=== PATIENT | female | born 1960 | race Caucasian/White ===

== ENCOUNTER 2018-09-19 21:28 | Inpatient (IN) | payer MEDICARE ==
[2018-09-19] MEDS ORDERED: Nitroglycerin 2% Ointment 1 INCH/1 GM Packet ONE (22:04)
[2018-09-20 02:02] LABS: Troponin I Less than 0.010 ng/mL (< 0.028)
[2018-09-20] MEDS ORDERED: Ondansetron PF 4 MG/2 ML Vial IVP PRN (02:07)
[2018-09-20] MEDS ORDERED: Ondansetron ODT 4 MG TAB SL PRN (02:07)
[2018-09-20] MEDS ORDERED: Acetaminophen 325 MG TAB PO PRN (02:07)
[2018-09-20] MEDS ORDERED: Nitroglycerin 2% Ointment 1 INCH/1 GM Packet TOP PRN (02:09)
[2018-09-20 02:16] VITALS: BMI 38.2
[2018-09-20 05:20] LABS: Troponin I Less than 0.010 ng/mL (< 0.028)
[2018-09-20 14:56] LABS: Actual Bicarbonate (HCO3a) 28.3 mEq/L (22-28); Base Excess (BEa) 0.1 mEq/L (-2.0 to +3.0); Calcium, Ionized 1.17 mmol/L (1.12-1.30); Carboxyhemoglobin (COHb) 2.6 gm% (0.0-3.0); Hemoglobin (Hb) 15.1 g/dL (12.0-16.0); Potassium - ABG Lab 4.87 mmol/L (3.70-5.30); pH, Arterial 7.28 (7.35-7.45)
[2018-09-20 14:57] LABS: CO2 Tension 61.2 mmHg (35.0-45.0); Puncture Site LRA
--- NOTE | 2018-09-20 15:40 | CT ---
FCT Brain WO Con History:Altered mental status Comparison: 09/11/2016 study Findings: The ventricular and cisternal system is within normal limits. There are no signs of intrace rebral hemorrhage or extra-axial fluid collections. The mastoid air cells and visualized sinuses are clear. Impression: No acute intracranial abnormalities.
--- NOTE | 2018-09-20 15:45 | HP ---
PRIMARY CARE PROVIDER: Dr. Jhoan Florentino. CHIEF COMPLAINT: Chest pain. HISTORY OF PRESENT ILLNESS: Ms. Young is a 58-year-old lady, who was seen at [facility] on 09/20/2018 following transfer from [facility] in [place]. The patient is currently lethargic, unable to provide any significant history. Collateral history was obtained from review of medical records. She presented to the emergency room at [facility] in [place] yesterday evening for chest pain. The chest pain started while she was watching television. It was retrosternal, pressure like, of moderate intensity and accompanied with nausea, but no diaphoresis. She took nitroglycerin, two doses and felt better. Her chest pain improved. She was subsequently transferred to the emergency room at [facility] and then admitted to the hospital. REVIEW OF SYSTEMS: Could not be completed. PAST MEDICAL HISTORY: History of cytosis, depression, hypertension, hypothyroidism, and pulmonary embolism. PAST SURGICAL HISTORY: Breast surgery, cardiac catheterization in 2013 showing normal coronaries, section, cholecystectomy, and D and C of uterus. PSYCHIATRIC HISTORY: Bipolar disorder and schizoaffective disorder. SOCIAL HISTORY: The patient smokes half a pack of cigarettes a day. She does not use alcohol or recreational drugs. FAMILY HISTORY: Significant for hypertension in mother and cancer in father. ALLERGIES: STADOL. CURRENT MEDICATIONS: 1. Acyclovir 400 mg daily. 2. Atorvastatin 10 mg 3 times a day. 3. Cyclobenzaprine 10 mg at bedtime. 4. Dicyclomine 20 mg three times a day. 5. Gabapentin 300 mg four times a day. 6. Irbesartan 300 mg daily. 7. Hyoscyamine p.r.n. 8. Jantoven 5 mg daily. 9. Levothyroxine 25 mcg daily. 10. Zofran p.r.n. 11. Zantac 150 mg every 8 hours as needed. 12. Trazodone 100 mg daily. 13. Geodon 80 mg daily. PHYSICAL EXAMINATION: GENERAL: On examination, Ms. Young is lethargic, arousable with painful stimuli, but falling asleep right away. She is obese, with a BMI of 38.3. VITAL SIGNS: Blood pressure is 115/56, pulse 83, respiratory rate 20, and oxygen saturation 94% on 3.5 L of oxygen by nasal cannula. HEENT: Eyes; no scleral icterus, no conjunctival pallor. ENT, moist mucosal membranes. NECK: No cervical lymphadenopathy. Neck is supple. Nontender. RESPIRATORY: Accessory muscles of breathing are not active. Chest wall movements are symmetric bilaterally. LUNGS: Clear to auscultation without wheeze, rhonchi, or crepitations. CARDIOVASCULAR: S1 and S2 are heard, regular. Peripheral pulses palpable. No carotid bruit. No pericardial rub. ABDOMEN: Soft, nontender, bowel sounds are heard. NEUROLOGIC: Full neurologic examination was not possible secondary to the patient's noncooperation. Pupils are 6 mm bilaterally, reactive to light. There is no facial droop. The patient is moving all 4 extremities. Deep tendon reflexes are 2+. Plantar reflexes downgoing bilaterally. SKIN: No rashes or subcutaneous nodules. MUSCULOSKELETAL: The patient is moving all 4 extremities. LYMPHATIC: No cervical lymphadenopathy. PSYCHIATRIC: Unable to assess mood, affect, or orientation to person, place, or time. DIAGNOSTIC STUDIES: Ms. Young's labs and investigations were reviewed. I reviewed her electrocardiogram, which shows normal sinus rhythm, T-wave flattening/inversion in the inferior leads and lateral leads. I also reviewed her chest x-ray, which does not show any pulmonary infiltrates. Comprehensive metabolic profile is unremarkable. Lactic acid level is normal at 1.8. CBC is unremarkable. Troponin I is negative x3 at this facility. ASSESSMENT AND PLAN: Ms. Young is a 58-year-old lady, who was seen at [facility] on 09/20/2018 following transfer from [facility] at [place]. Her problem list includes: 1. Chest pain: She presented to the emergency room at [place] complaining of chest pain. She had a normal cath in 2013. She will be admitted to the hospital for further management including telemetry monitoring. We will also request a stress test. 2. Altered mental status: Etiology is unclear. It is also unclear what her baseline is. We will check arterial blood gases. We will also check CT scan of the brain, since she is on anticoagulants. We will check urine drug screen. 3. Hypertension: We will monitor vital signs and titrate antihypertensives as needed. 4. Hypothyroidism: Continue Synthroid. 5. History of pulmonary embolism: Continue warfarin. Many thanks for allowing me to participate in your patient's care. Please feel free to contact me with any questions or concerns. LEVEL OF RISK: High. LEVEL OF COMPLEXITY: High. Job ID: [id number]
--- NOTE | 2018-09-20 15:45 | PDOC.EVN ---
Event Note - Event Note Event Note: 3:20-3:37 PM on September 20, 2018: Discussed with patient's son Carl over the telephone. Updated re: pt's current clinical status including lethargy, hypercapnic and hypoxic respiratory failure. Answered his questions. Discussed goals of care and code status. Patient is full code.
[2018-09-20] MEDS: Acyclovir 400 mg Tablet PO SCH ×2 (17:35→21:33)
[2018-09-20 18:24] LABS: #Basophils 0.1 thou/uL (0.0-0.2); #Eosinphils 0.1 thou/uL (0.0-0.7); #Lymphocytes 3.1 thou/uL (1.20-3.40); #Monocytes 1.2 thou/uL (0.11-0.59); #Neutrophils 6.8 thou/uL (1.40-6.50); %Basophils 0.5 % (0.0-1.0); %Eosinophils 1.2 % (0.0-10.0); %Monocytes 10.7 % (0.0-10.0); %Neutrophils 60.6 % (42.0-75.0); Hemoglobin 15.1 g/dL (12.0-16.0); Mean Corpuscular HGB CONC 31.8 g/dL (32.0-36.0); Mean Corpuscular Hemoglobin 30.8 pg (27.0-31.0); Mean Corpuscular Volume 96.8 fL (78.0-98.0); Mean Platelet Volume 7.2 fL (7.4-10.4); Platelet Count 275 thou/uL (130-400); RBC Distribution Width 12.9 % (11.5-14.5); Red Blood Cell (RBC) Count 4.91 mill/uL (4.20-5.40); White Blood Cell (WBC) Count 11.3 thou/uL (4.8-10.8)
[2018-09-20 18:44] LABS: Anion Gap 13 mmol/L (10-20); BUN (Urea Nitrogen) 15 mg/dL (9.8-20.1); Calc. Creatinine Clearance 126 mL/min (70-130); Calcium 8.7 mg/dL (7.8-10.44); Carbon Dioxide 25 mmol/L (22-29); Chloride 103 mmol/L (98-107); Estimated GFR-MDRD 70; Glucose 83 mg/dL (70-105); Potassium 4.6 mmol/L (3.5-5.1); Sodium 136 mmol/L (136-145)
[2018-09-20] MEDS: Warfarin Sodium 5 MG TAB PO SCH (19:07)
[2018-09-20 21:07] LABS: Bilirubin Negative (Negative); Blood, Urine Negative (Negative); Clarity CLEAR (Clear); Glucose, Urine (Dipstick) Negative (Negative); Leukocyte Negative (Negative); Nitrite Negative (Negative); Protein, Urine (Dipstick) Negative (Neg-Trace); Specific Gravity, Urine 1.013 (1.002-1.036); Urobilinogen 0.2 mg/dL (0.2-1.0); pH, Urine 6.5 (5.0-9.0)
[2018-09-20 21:09] LABS: Bacteria/HPF None Seen HPF (None Seen); Hyaline Casts/LPF 0-3 HYALINE CAST LPF (0-3 Hyaline); Pathc Cast-AUWi Flag 0.67 (0-2.49); Squamous Epithelial 0-3 HPF (0-3); WBC/HPF 0-3 HPF (0-3)
[2018-09-20 21:10] LABS: Urine Culture Reflex No No
[2018-09-20 21:14] LABS: Amphetamine Not Detected (NotDetected); Barbiturates Screen Not Detected (NotDetected); Benzodiazepine Screen Detected (NotDetected); Cocaine Metabolite Screen Not Detected (NotDetected); Medtox Control Line Valid? VALID (VALID); Medtox Reader # READER 4; Methadone Not Detected (NotDetected); Methamphetamine Not Detected (NotDetected); Opiate Screen Not Detected (NotDetected); Oxycodone Screen Not Detected (NotDetected); Phencyclidine (PCP) Not Detected (NotDetected); THC/Cannabinoid Screen Not Detected (NotDetected); Tricyclic Screen Not Detected (NotDetected)
[2018-09-20] MEDS: Atorvastatin Calcium 10 MG TAB PO SCH (21:33)
[2018-09-21] MEDS: Acyclovir 400 mg Tablet PO SCH ×6 (00:48→23:02)
[2018-09-21] MEDS: Levothyroxine Sodium 25 MCG TAB PO SCH (06:36)
[2018-09-21 06:40] LABS: #Basophils 0.1 thou/uL (0.0-0.2); #Eosinphils 0.1 thou/uL (0.0-0.7); #Lymphocytes 2.8 thou/uL (1.20-3.40); #Monocytes 0.7 thou/uL (0.11-0.59); #Neutrophils 3.6 thou/uL (1.40-6.50); %Basophils 0.8 % (0.0-1.0); %Eosinophils 1.6 % (0.0-10.0); %Lymphocytes 38.7 % (21.0-51.0); %Neutrophils 49.9 % (42.0-75.0); Mean Corpuscular HGB CONC 31.9 g/dL (32.0-36.0); Mean Corpuscular Hemoglobin 30.9 pg (27.0-31.0); Mean Corpuscular Volume 96.7 fL (78.0-98.0); Mean Platelet Volume 7.5 fL (7.4-10.4); Platelet Count 272 thou/uL (130-400); RBC Distribution Width 12.9 % (11.5-14.5); Red Blood Cell (RBC) Count 4.54 mill/uL (4.20-5.40); White Blood Cell (WBC) Count 7.3 thou/uL (4.8-10.8)
[2018-09-21 06:46] LABS: INR-International Normal Ratio 1.5; Prothrombin Time 17.9 SEC (12.0-14.7)
[2018-09-21 07:01] LABS: Anion Gap 13 mmol/L (10-20); BUN (Urea Nitrogen) 21 mg/dL (9.8-20.1); Calc. Creatinine Clearance 115 mL/min (70-130); Calcium 8.5 mg/dL (7.8-10.44); Carbon Dioxide 24 mmol/L (22-29); Chloride 101 mmol/L (98-107); Estimated GFR-MDRD 64; Glucose 142 mg/dL (70-105); Potassium 4.2 mmol/L (3.5-5.1); Sodium 134 mmol/L (136-145)
--- NOTE | 2018-09-21 07:59 | CON ---
DATE OF CONSULTATION: 09/20/2018 HISTORY OF PRESENT ILLNESS: Ms. Young is a 58-year-old female transferred to the ICU for somnolence. She had a CT prior to transfer. She actually awakened easily when she arrived in the ICU. She had not received any sedative drugs. She is noted to have apneic spells when she falls asleep. She was admitted for chest pain, was in the middle of that workup. PAST MEDICAL HISTORY: Remarkable for, 1. Pulmonary emboli according to her twice in the past, for which she takes Coumadin. 2. History of an ER visit here in August of 2016, for evaluation of her fall, apparently she fell off a ladder, had an extensive workup and was not admitted to the hospital. 3. History of obesity. 4. History of a cardiac catheterization in 2001 complicated apparently by cardiac arrest during the procedure. 5. History of diabetes. 6. History of histiocytosis at age 9 months. 7. History of lumbar compression fractures. 8. History of cholecystectomy. 9. History of 2013 admission for chest pain. 10. History of reflux disease. 11. Some type of psychiatric disorder according to old notes, treated with Geodon. a. I did find a note from Dr. Waddell, but I could not pull it out. It was a 2001 psychiatric hospitalization note. 12. History of lipid disorder. 13. History of gastric erosions on endoscopy in the past. 14. History of tobacco use back in 2012. She was smoking 2 to 3 cigarettes a day. 15. History of VFib during cardiac catheterization, requiring several cardioversions. 16. There was a questionable allergy to iodine in the past and stadol. FAMILY HISTORY: Negative for lung disease. SOCIAL HISTORY: Still smoking a half pack a day. She is not a drinker. MEDICATIONS: Have been reviewed. REVIEW OF SYSTEMS: Ten point review of systems completed, otherwise negative. PHYSICAL EXAMINATION: GENERAL: She remembers me from taking care of her [id number] many years ago when I walked in the room. She responded quickly. Was pleasant, cooperative. VITAL SIGNS: Heart rate was in the 70s, blood pressure is 102/73, respiratory rate is 18, oximetry is 93. HEENT: Pupils are equal. Sclerae are anicteric. Conjunctiva was injected. Extraocular movements are intact. NECK: Supple. LUNGS: Clear. HEART: Regular rhythm. S1, S2 are normal. ABDOMEN: Soft and nontender. EXTREMITIES: Without clubbing, cyanosis, or edema. IMPRESSION: Hypersomnolence, most likely secondary to untreated sleep apnea/ obesity hypoventilation syndrome. Blood gas shows a pH 7.28, CO2 61, PO2 of 72 with no sedatives on board. I have recommended BiPAP whenever she sleeps, as I suspect this will gradually improve. She said she is willing to do a sleep study after discharge. With regard to her chest discomfort, I reviewed her history and discussed this with her and it does not sound like typical cardiac chest discomfort. I am sure Dr. Cleveland would like to know if she is in the hospital, but would not be interested in resting off to a heart catheterization after her cardiac arrest with catheterization in the past. Dr. Cleveland should have those cath records available in her office chart, I would think. I will be happy to follow her while she is in the hospital. This is a 70-minute consult, with greater than 50% of the time spent coordinating care. Job ID: [id number] [facility]
[2018-09-21] MEDS: FLUoxetine HCl 20 MG CAP PO SCH (09:03)
[2018-09-21] MEDS: Famotidine 20 MG TAB PO SCH (09:03)
[2018-09-21] MEDS ORDERED: Nitroglycerin 0.4 MG TAB (25 Tab Bottle) SL PRN (11:07)
--- NOTE | 2018-09-21 11:35 | PRG ---
DATE OF SERVICE: 09/21/2018 SUBJECTIVE: Shae Young is much more alert today. She said she tolerated the mask much better than she expected that she would. Her blood pressure is running low this morning 97 to 102, so her blood pressure medications have been held. I will discontinue her ARB and cut her beta-briseyda dose way down. OBJECTIVE: VITAL SIGNS: Blood pressure now is 102/60, heart rate 69, respiratory rate in the teens. LUNGS: Clear. HEART: Regular rhythm. ABDOMEN: Soft and nontender. EXTREMITIES: Without edema. LABORATORY DATA: White count , hemoglobin 14.0, platelets 272. Sodium 134, potassium 4.2, chloride 101, bicarb 24, BUN 21, creatinine 0.9, glucose 142. IMPRESSION: 1. Obesity hypoventilation syndrome. 2. Hypertension. 3. Schizoaffective disorder, clinically stable. 4. Hypertension, which should improve with treatment of her sleep apnea. 5. History of recurrent thromboembolic events by her history, on warfarin, slightly subtherapeutic. 6. Obesity. 7. Diabetes. 8. Status post admission at this time for chest pain with no recurrence of her chest discomfort so far. 9. Past history of tobacco use. 10. History of VFib during cardiac catheterization. 11. ? Allergy to iodine and stadol. 12. Ongoing tobacco use. PLAN: 1. Continue supportive care. Continue BiPAP when asleep. 2. Sleep study when she is stable out of the hospital. 3. Complete her cardiac workup, consider notifying her straightener, Dr. Cleveland for admission. Job ID: [id number]
--- NOTE | 2018-09-21 14:02 | PDOC.PN ---
- Subjective Encounter Start Date: 09/21/18 Encounter Start Time: 09:20 Pt seen for followup re; acute metabolic encephalopathy. Says she feels well now. Had chest pain prior to coming to ER, not now. - Objective MAR Reviewed: Yes Vital Signs & Weight: Vital Signs (12 hours) Temp Pulse Resp Pulse Ox 09/21/18 11:42 98.5 F 09/21/18 08:20 95 09/21/18 08:00 98.9 F 09/21/18 07:52 94 L 09/21/18 04:00 99.1 F 09/21/18 02:51 70 19 92 L Weight Weight 242 lb 1.081 oz Most Recent Monitor Data Heart Rate from ECG 70 NIBP 109/71 NIBP BP-Mean 83 Respiration from ECG 16 SpO2 95 I&O: 09/20/18 09/21/18 09/22/18 06:59 06:59 06:59 Intake Total 480 840 Output Total 600 1325 Balance -120 -485 Result Diagrams: 09/21/18 05:40 09/21/18 05:40 EKG Reviewed by me: Yes (Tele: NSR) Phys Exam - Physical Examination Obese HEENT: moist MMs Neck: supple Respiratory: clear to auscultation bilateral Cardiovascular: RRR Gastrointestinal: soft Neurological: moves all 4 limbs Psychiatric: normal affect Dx/Plan (1) Acute metabolic encephalopathy Code(s): G93.41 - METABOLIC ENCEPHALOPATHY Status: Acute Comment: Likely secondary to hypercapnia, improving (2) Acute on chronic respiratory failure with hypoxia and hypercapnia Code(s): J96.21 - ACUTE AND CHRONIC RESPIRATORY FAILURE WITH HYPOXIA; J96.22 - ACUTE AND CHRONIC RESPIRATORY FAILURE WITH HYPERCAPNIA Status: Acute Comment : Improved with BiPAP (3) Chest pain Code(s): R07.9 - CHEST PAIN, UNSPECIFIED Status: Acute Comment: Pt had resting portion of stress test yesterday. Will complete stress test tomorrow. Discussed with cardiology service. (4) HTN (hypertension) Code(s): I10 - ESSENTIAL (PRIMARY) HYPERTENSION Status: Acute Comment: controlled (5) History of pulmonary embolism Code(s): Z86.711 - PERSONAL HISTORY OF PULMONARY EMBOLISM Status: Chronic Comment: continue warfarin - Plan * . Review of Systems - Review of Systems Respiratory: negative: Cough, Shortness of Breath, SOB with Excertion, Pleuritic Pain, Wheezing Cardiovascular: negative: chest pain, palpitations, orthopnea, paroxysmal nocturnal dyspnea, edema, light headedness - Medications/Allergies Allergies/Adverse Reactions: Allergies Allergy/AdvReac Type Severity Reaction Status Date / Time butorphanol [From Stadol] Allergy "andray" Verified 09/20/18 02:26 Medications: Current Medications Acyclovir (Zovirax) 400 mg PO 5XD [facility] Last Admin: 09/21/18 13:56 Dose: 400 mg Albuterol/Ipratropium (Duoneb) 3 ml NEB [id number] PRN PRN Reason: SOB &/or Wheezing Albuterol/Ipratropium (Duoneb) 3 ml NEB [id number] [facility] Atorvastatin Calcium (Lipitor) 10 mg PO HS [facility] Last Admin: 09/20/18 21:33 Dose: 10 mg Famotidine (Pepcid) 40 mg PO DAILY [facility] Last Admin: 09/21/18 09:03 Dose: 40 mg Fluoxetine HCl (Prozac) 20 mg PO DAILY [facility] Last Admin: 09/21/18 09:03 Dose: 20 mg Fluticasone Propionate (Flonase Nasal [place]) 1 gm NASAL DAILY [facility] Levothyroxine Sodium (Synthroid) 25 mcg PO 0600 [facility] Last Admin: 09/21/18 06:36 Dose: 25 mcg Metoprolol Succinate (Toprol Xl) 25 mg PO DAILY [facility] Nitroglycerin (Nitrostat) 0.4 mg SL Q5MIN PRN PRN Reason: Chest Pain Warfarin Sodium (Coumadin) 5 mg PO SuMoTuFrSa@1700 [facility] Last Admin: 09/20/18 19:07 Dose: 5 mg Warfarin Sodium (Coumadin) 10 mg PO WeTh@1700 [facility] Ziprasidone (Geodon) 80 mg PO BID [facility]
--- NOTE | 2018-09-21 14:46 | CON ---
DATE OF CONSULTATION: 09/21/2018 REASON FOR CONSULTATION: Chest pain. PRIMARY CARE PROVIDER: Dr. Chaves. PRIMARY METAL STUD FRAMER: Dr. Sofi Cleveland. HISTORY OF PRESENT ILLNESS: This lady is a 58-year-old woman with a past medical history of sleep apnea, who states she developed one episode of chest pain prior to coming to the emergency room. She states the pain was felt to be severe, sharp, worse with deep breath. She says this was lasting less than 1 minute. She was subsequently admitted and placed on oxygen. She then had a resting stress study performed yesterday. She developed somnolence. She was transferred to the ICU and placed on BiPAP. She was felt to be hypercapnic. During my visit, she is doing well. She had another episode of chest pain, that she said lasted less than 1 minute and occurred at rest. The patient did undergo coronary angiography in January 2014. She had a normal LAD, left main artery, and circumflex artery. PAST MEDICAL HISTORY: 1. Obesity. 2. PE. 3. Diabetes mellitus. 4. Histiocytosis. 5. Compression fracture. 6. Cholecystectomy. 7. Lipid disorder. 8. Previous tobacco abuse. FAMILY HISTORY: Negative for CAD. SOCIAL HISTORY: Positive tobacco use. REVIEW OF SYSTEMS: A 10-point review of systems is reviewed and as above, otherwise negative. HOME MEDICATIONS: 1. Irbesartan. 2. Geodon. 3. Atorvastatin. 4. Ranitidine. 5. Toprol-XL. 6. Trazodone. 7. Coumadin. 8. Levothyroxine. 9. Acyclovir. 10. Xanax. 11. Prozac. PHYSICAL EXAMINATION: GENERAL: Patient is a pleasant female, who is in no acute distress. The patient appears their stated age. She is morbidly obese, weighing 242 pounds with a BMI of 37. VITAL SIGNS: Blood pressure 120/86, pulse 65, temperature afebrile. NEUROLOGIC: The patient is alert and oriented x3 with no focal neurologic deficits. HEENT: Sclerae without icterus. Mouth has moist mucous membranes with normal pallor. NECK: No JVD. Carotid upstroke brisk. No bruits bilaterally. LUNGS: Clear to auscultation with unlabored respirations. BACK: No scoliosis or kyphosis. CARDIAC: Regular rate and rhythm with normal S1 and S2. No S3 or S4 noted. No significant rubs, murmurs, thrills, or gallops noted throughout the precordium. PMI is not displaced. There is no parasternal heave. ABDOMEN: Soft, nontender, nondistended. No peritoneal signs present. No hepatosplenomegaly. No abnormal striae. EXTREMITIES: 2+ femoral and 2+ dorsalis pedis pulses. No cyanosis, clubbing, or edema. SKIN: No gross abnormalities. PERTINENT LABORATORY DATA: Hemoglobin 14, hematocrit 43, platelet count of 272. IMPRESSION: 1. Chest pain. 2. Obesity. 3. Hypercapnic state. RECOMMENDATION: Ms. Young's symptoms are very atypical for angina. We will have the second part of the stress study performed. She did have angiography performed in 2013 and was felt to be within normal limits. At this point, we will continue conservative therapy. Job ID: [id number]
[2018-09-21] MEDS: Warfarin Sodium 5 MG TAB PO SCH (17:24)
[2018-09-21] MEDS: Atorvastatin Calcium 10 MG TAB PO SCH (20:25)
[2018-09-22] MEDS: FLUoxetine HCl 20 MG CAP PO SCH (05:45)
[2018-09-22] MEDS: Levothyroxine Sodium 25 MCG TAB PO SCH (05:45)
[2018-09-22] MEDS: Acyclovir 400 mg Tablet PO SCH ×3 (05:45→16:18)
[2018-09-22] MEDS: Famotidine 20 MG TAB PO SCH (05:45)
[2018-09-22 06:44] LABS: #Basophils 0.1 thou/uL (0.0-0.2); #Eosinphils 0.3 thou/uL (0.0-0.7); #Lymphocytes 3.4 thou/uL (1.20-3.40); #Monocytes 1.1 thou/uL (0.11-0.59); #Neutrophils 3.9 thou/uL (1.40-6.50); %Basophils 0.8 % (0.0-1.0); %Eosinophils 3.1 % (0.0-10.0); %Lymphocytes 38.4 % (21.0-51.0); %Monocytes 12.8 % (0.0-10.0); %Neutrophils 44.9 % (42.0-75.0); Hemoglobin 14.3 g/dL (12.0-16.0); Mean Corpuscular Hemoglobin 30.7 pg (27.0-31.0); Mean Platelet Volume 7.3 fL (7.4-10.4); Platelet Count 276 thou/uL (130-400); Red Blood Cell (RBC) Count 4.67 mill/uL (4.20-5.40); White Blood Cell (WBC) Count 8.8 thou/uL (4.8-10.8)
[2018-09-22 06:49] LABS: INR-International Normal Ratio 1.4; Prothrombin Time 16.9 SEC (12.0-14.7)
[2018-09-22 07:07] LABS: Anion Gap 12 mmol/L (10-20); BUN (Urea Nitrogen) 16 mg/dL (9.8-20.1); Calc. Creatinine Clearance 129 mL/min (70-130); Calcium 8.8 mg/dL (7.8-10.44); Carbon Dioxide 26 mmol/L (22-29); Chloride 107 mmol/L (98-107); Estimated GFR-MDRD 70; Glucose 85 mg/dL (70-105); Potassium 4.1 mmol/L (3.5-5.1); Sodium 141 mmol/L (136-145)
[2018-09-22] MEDS ORDERED: Fluticasone Propionate Nasal Spray 16 gm Bottle NASAL SCH (09:00)
[2018-09-22] MEDS ORDERED: ADENOSINE 60 MG/20 ML VIAL ONE (09:15)
--- NOTE | 2018-09-22 09:55 | PDOC.CTH ---
Cardiology Progress Note - Subjective Patient without complaints. Denies CP - Objective Vital Signs Temp Pulse Resp BP Pulse Ox 09/22/18 07:20 98.0 F 75 16 138/69 95 09/22/18 04:05 97.9 F 73 16 127/68 93 L 09/21/18 22:16 76 16 92 L Weight 250 lb 09/21/18 09/22/18 09/23/18 06:59 06:59 06:59 Intake Total 480 1310 Output Total 600 3225 Balance -120 -1915 - Physical Examination General/Neuro: alert & oriented x3 Lungs: CTA Heart: RRR Abdomen: NT/ND Extremities: other: (trace B AKIRA) - Telemetry Telemetry Rhythm: SR - Labs Result Diagrams: 09/22/18 06:27 09/22/18 06:27 Troponin/CKMB Troponin I Less than 0.010 ng/mL (< 0.028) 09/20/18 04:38 - Assessment/Plan 1. Chest pain 2. Obesity 3. BARBARA 4. DM-II History of normal coronaries per cath 2013. Will complete 2nd portion of stress today. If no reversible ischemia, can be discharged afterwards from my standpoint.
--- NOTE | 2018-09-22 13:43 | NM ---
[facility] Cardiac myocardial perfusion SPECT Ejection fraction study Wall motion cine: DATE: 09/22/2018 History: 58-year-old hypertensive diabetic smoker presents with acute chest pain. TECHNIQUE: Number of days:1 Rest study: Not performed. This is a stress-only study. Pharmacologic stress: Adenosine dose:63.3 mg Stress study: Technetium 99m-sestamibi (Cardiolite) dose:30.0 mCi FINDINGS: Cardiac (myocardial perfusion) SPECT There are no myocardial perfusion defects. Ejection fraction study Left ventricular EF is 84% Wall motion cine Normal IMPRESSION: Negative.
--- NOTE | 2018-09-22 14:01 | PDOC.PN ---
- Subjective Encounter Start Date: 09/22/18 Encounter Start Time: 07:40 Pt seen for followup re: chest pain. Awaiting stress test. - Objective MAR Reviewed: Yes Vital Signs & Weight: Vital Signs (12 hours) Temp Pulse Resp BP Pulse Ox 09/22/18 13:34 98.2 F 84 18 133/77 94 L 09/22/18 07:20 98.0 F 75 16 138/69 95 09/22/18 04:05 97.9 F 73 16 127/68 93 L Weight Weight 250 lb Most Recent Monitor Data Heart Rate from ECG 86 NIBP 108/69 NIBP BP-Mean 82 Respiration from ECG 16 SpO2 94 I&O: 09/21/18 09/22/18 09/23/18 06:59 06:59 06:59 Intake Total 480 1310 Output Total 600 3225 Balance -120 -1915 Result Diagrams: 09/22/18 06:27 09/22/18 06:27 Phys Exam - Physical Examination Obese HEENT: moist MMs Neck: supple Respiratory: clear to auscultation bilateral Cardiovascular: RRR Gastrointestinal: soft Neurological: moves all 4 limbs Psychiatric: normal affect Dx/Plan (1) Chest pain Code(s): R07.9 - CHEST PAIN, UNSPECIFIED Status: Acute Comment: Pt cannot have stress etst until tomorrow. Likely home if test is negative. (2) Acute metabolic encephalopathy Code(s): G93.41 - METABOLIC ENCEPHALOPATHY Status: Acute Comment: Improving (3) Acute on chronic respiratory failure with hypoxia and hypercapnia Code(s): J96.21 - ACUTE AND CHRONIC RESPIRATORY FAILURE WITH HYPOXIA; J96.22 - ACUTE AND CHRONIC RESPIRATORY FAILURE WITH HYPERCAPNIA Status: Acute Comment : Improved (4) HTN (hypertension) Code(s): I10 - ESSENTIAL (PRIMARY) HYPERTENSION Status: Chronic Comment: controlled (5) History of pulmonary embolism Code(s): Z86.711 - PERSONAL HISTORY OF PULMONARY EMBOLISM Status: Chronic Comment: continue warfarin - Plan * . Review of Systems - Review of Systems Cardiovascular: negative: chest pain, palpitations, orthopnea, paroxysmal nocturnal dyspnea, edema, light headedness Gastrointestinal: negative: Nausea, Vomiting, Abdominal Pain, Diarrhea, Constipation, Melena, Hematochezia - Medications/Allergies Allergies/Adverse Reactions: Allergies Allergy/AdvReac Type Severity Reaction Status Date / Time butorphanol [From Stadol] Allergy "crazy" Verified 09/20/18 02:26 Medications: Current Medications Acyclovir (Zovirax) 400 mg PO 5XD [facility] Last Admin: 09/22/18 13:36 Dose: 400 mg Albuterol/Ipratropium (Duoneb) 3 ml NEB [id number] PRN PRN Reason: SOB &/or Wheezing Albuterol/Ipratropium (Duoneb) 3 ml NEB [id number] [facility] Last Admin: 09/22/18 11:20 Dose: Not Given Atorvastatin Calcium (Lipitor) 10 mg PO HS [facility] Last Admin: 09/21/18 20:25 Dose: 10 mg Famotidine (Pepcid) 40 mg PO DAILY [facility] Last Admin: 09/22/18 05:45 Dose: 40 mg Fluoxetine HCl (Prozac) 20 mg PO DAILY [facility] Last Admin: 09/22/18 05:45 Dose: 20 mg Fluticasone Propionate (Flonase Nasal [place]) 1 gm NASAL DAILY [facility] Last Admin: 09/22/18 05:46 Dose: 1 spr Levothyroxine Sodium (Synthroid) 25 mcg PO 0600 [facility] Last Admin: 09/22/18 05:45 Dose: 25 mcg Metoprolol Succinate (Toprol Xl) 25 mg PO DAILY [facility] Last Admin: 09/22/18 08:58 Dose: 25 mg Nitroglycerin (Nitrostat) 0.4 mg SL Q5MIN PRN PRN Reason: Chest Pain Warfarin Sodium (Coumadin) 5 mg PO SuMoTuFrSa@1700 [facility] Last Admin: 09/21/18 17:24 Dose: 5 mg Warfarin Sodium (Coumadin) 10 mg PO WeTh@1700 [facility] Ziprasidone (Geodon) 80 mg PO BID [facility] Last Admin: 09/22/18 05:44 Dose: 80 mg
[2018-09-22] MEDS: Warfarin Sodium 5 MG TAB PO SCH (16:19)
[2018-09-22 16:23] VITALS: BP 134/87; TEMP 98.1
--- NOTE | 2018-09-22 18:49 | PRG ---
DATE OF SERVICE: 09/22/2018 OBJECTIVE: Ms. Young is afebrile. Heart rate is 80, respiratory rate 18, oximetry is 94% on room air, blood pressure 133/77. LUNGS: Clear. HEART: Regular rhythm. ABDOMEN: Soft. She is telling me she feels actually fantastic. Likely because her sleep apnea has been treated while she has been here. She will need short-term follow up with me so I can schedule a sleep study with a [id number] meeting in the office. I have given her my phone number. Job ID: [id number]
--- NOTE | 2018-09-23 04:55 | DIS ---
DATE OF ADMISSION: 09/20/2018 DATE OF DISCHARGE: 09/22/2018 PRIMARY CARE PROVIDER: Dr. Jhoan Florentino. DISCHARGE DIAGNOSES: 1. Acute metabolic encephalopathy. 2. Ivhhk-fr-ljtyvhi respiratory failure with hypoxia and hypercapnia. 3. Chest pain. 4. Chest pain, most likely secondary to musculoskeletal etiology. 5. Respiratory acidosis. CONDITION OF PATIENT ON THE DAY OF DISCHARGE: Stable. I assessed Ms. Young on the day of discharge. Please refer to my daily progress note dated September 22, 2018, for further details. DISCHARGE MEDICATIONS: 1. Acyclovir 400 mg 5 times daily. 2. Atorvastatin 10 mg at bedtime. 3. Fluoxetine 20 mg daily. 4. Irbesartan 200 mg daily. 5. Levothyroxine 25 mcg daily. 6. Toprol-XL 100 mg daily. 7. Ranitidine 300 mg daily. 8. Warfarin as directed. 9. Geodon 80 mg 2 times daily. CONSULTATIONS DURING THIS HOSPITALIZATION: Cardiology, Dr. Vigil and pulmonary and Critical Care Medicine, Dr. Jasos. HOSPITAL COURSE: Ms. Young is a pleasant 58-year-old lady, who was admitted to [facility] on September 20, 2018, for chest pain and acute metabolic encephalopathy. Please refer to my history and physical note dated September 20, 2018, for further details. At the time of admission, she was lethargic. Arterial blood gases showed hypoxia and hypercapnia. She also had respiratory acidosis. She was transferred to [facility] and treated with BiPAP. She was seen by Cardiology and Pulmonary and Critical Care Medicine Services. She improved clinically. She needs a sleep study when she is stable and out of the hospital. She had nuclear stress test, which was normal. Left ventricular ejection fraction was 84%. She was advised to follow up with her primary care provider. On the day of discharge, she has unremarkable chem 7, unremarkable CBC, and INR of 1.4. She is advised to follow up with her primary care provider for warfarin management. Chest pain, resolved during this hospitalization. Many thanks for allowing me to participate in your patient's care. Please feel free to contact me with any questions or concerns. DISCHARGE DESTINATION: Home. TIME SPENT: Total amount of time spent coordinating this discharge: 32 minutes. Job ID: [id number]
[2018-09-25] MEDS ORDERED: Warfarin Sodium 5 MG TAB PO SCH (17:00)
== END 2018-09-22 17:45 | disposition home or self-care (01) | DRG 70 ==
LOC: ERS 21:28 → OBSVTOIN 09-20 02:06 → 2SW 09-20 02:06 → CCU 09-20 17:04 → 2NO 09-21 21:24
PROVIDERS: ADMIT Internal Medicine; ATTEND Internal Medicine
PROC: 5A09457 Assistance with Respiratory Ventilation, 24-96 Consecutive Hours, Continuous Positive Airway Pressure (ICD-10-PCS; principal; 2018-09-20)
DX: G93.41 Metabolic encephalopathy (principal); J96.21 Acute and chronic respiratory failure with hypoxia; J96.22 Acute and chronic respiratory failure with hypercapnia; E87.2 Acidosis; I10 Essential (primary) hypertension; E03.9 Hypothyroidism, unspecified; F31.9 Bipolar disorder, unspecified; F25.9 Schizoaffective disorder, unspecified; E11.9 Type 2 diabetes mellitus without complications; E66.9 Obesity, unspecified; G47.33 Obstructive sleep apnea (adult) (pediatric); R07.89 Other chest pain; F17.210 Nicotine dependence, cigarettes, uncomplicated; Z86.711 Personal history of pulmonary embolism; Z90.49 Acquired absence of other specified parts of digestive tract; Z88.8 Allergy status to other drugs, medicaments and biological substances; Z79.899 Other long term (current) drug therapy; Z68.39 Body mass index [BMI] 39.0-39.9, adult
CPT/HCPCS: 36415; 70450; 78452; 80048; 80306; 81001; 82805; 84484; 85025; 85610; 87040; 93005; 93017; 94640; 94660; 94760; A9500; J0153; J7620

== ENCOUNTER 2022-10-11 09:03 | Outpatient (CLI) | payer MEDICARE, OTHER ==
[2022-10-11] MEDS ORDERED: Iopamidol 370 76% 100 ML VIAL ONE (10:46)
== END 2022-10-11 09:04 | disposition home or self-care (01) ==
LOC: CT 09:03
PROVIDERS: ATTEND Internal Medicine
DX: C50.412 Malignant neoplasm of upper-outer quadrant of left female breast (principal); Z98.890 Other specified postprocedural states; Z90.10 Acquired absence of unspecified breast and nipple
CPT/HCPCS: 71260; 74177; 78306; A9503; Q9967